=== PATIENT | male | born 1945 | race Caucasian/White ===

== ENCOUNTER 2021-04-05 18:55 | Emergency (ER) | payer OTHER, BC ==
[~2021-04-05] VITALS: Ht 162.6 cm; Wt 81.7 kg
[2021-04-05 20:25] LABS: BASOPHILS ABSOLUTE AUTO 0.03 K/mm3 (0.00-0.23); BASOPHILS PERCENT AUTO 1 % (0-2); EOSINOPHILS ABSOLUTE AUTO 0.05 K/mm3 (0.00-0.68); EOSINOPHILS PERCENT AUTO 1 % (0-6); Hematocrit 46.6 % (37.0-53.0); Hemoglobin 15.6 g/dL (13.5-17.5); IMMATURE GRAN ABSOLUTE AUTO 0.01 K/mm3 (0.00-0.10); IMMATURE GRAN PERCENT AUTO 0 % (0-1); LYMPHOCYTES ABSOLUTE AUTO 1.31 K/mm3 (0.84-5.20); LYMPHOCYTES PERCENT AUTO 26 % (21-46); MONOCYTES ABSOLUTE AUTO 0.62 K/mm3 (0.16-1.47); MONOCYTES PERCENT AUTO 12 % (4-13); Mean Corpuscular HGB 31.5 pg (26.0-34.0); Mean Corpuscular HGB Conc 33.5 g/dL (31.5-36.5); Mean Corpuscular Volume 94 fL (80-100); Mean Platelet Volume 10.1 fL (9.1-12.4); NEUTROPHILS ABSOLUTE AUTO 3.02 K/mm3 (1.96-9.15); NEUTROPHILS PERCENT AUTO 60 % (41-73); Platelet Count 149 K/mm3 (150-400); RDW Coefficient Variation 13.8 % (11.7-14.2); RDW Standard Deviation 47.6 fL (35.1-46.3); Red Blood Cell Count 4.95 M/mm3 (4.30-5.90); White Blood Cell Count 5.04 K/mm3 (4.00-11.30)
[2021-04-05 21:12] LABS: Alanine Aminotransfer (ALT/SGP 46 U/L (12-78); Albumin, Blood 3.6 g/dL (3.4-5.0); Alk Phos 53 U/L (50-136); Anion Gap 7 mmol/L (6-16); Aspartate Aminotrans (AST/SGOT 35 U/L (12-37); Bilirubin, Total 0.6 mg/dL (0.1-1.0); Blood Urea Nitrogen 7 mg/dL (8-24); Bun/Creatinine Ratio 6.2 (12.0-20.0); CO2, Blood 27 mmol/L (21-32); Calcium, Blood 9.5 mg/dL (8.5-10.1); Chloride, Blood 103 mmol/L (98-108); Creatinine, Blood 1.13 mg/dL (0.60-1.20); Globulin, Blood 3.5 g/dL (2.2-4.0); Glomerular Filtration Rate >60 (60-); Glucose, Blood 102 mg/dL (70-99); Potassium, Blood 4.2 mmol/L (3.5-5.5); Sodium, Blood 137 mmol/L (136-145); Total Protein, Blood 7.1 g/dL (6.4-8.2)
[2021-04-05] MEDS ORDERED: SPIR25 PO (23:48)
[2021-04-05] MEDS ORDERED: PROP10 PO (23:48)
[2021-04-05] MEDS ORDERED: LACT10SY PO (23:49)
== END 2021-04-05 23:41 | disposition home or self-care (01) ==
LOC: ER 18:55
PROVIDERS: Physician Assistant
DX: H53.2 Diplopia (principal); I10 Essential (primary) hypertension; F17.220 Nicotine dependence, chewing tobacco, uncomplicated
CPT/HCPCS: 70450; 80053; 85025; 93005; 93010; 99284-25

== ENCOUNTER 2022-07-10 11:13 | Day surgery (SDC) | payer OTHER ==
[~2022-07-10] VITALS: Ht 162.6 cm; Wt 87.1 kg
[~2022-07-10 11:13] MED LIST: LACT10SY PO; PROP10 PO; SPIR25 PO
[2022-07-10] MEDS ORDERED: PEPCID40 MG (11:46)
[2022-07-10] MEDS ORDERED: FLUT.05NI (11:46)
--- NOTE | 2022-07-10 12:28 | NUR ---
07/10/22 1228 Hannah Bhatt 2% LIDOCAINE NEBULIZER GIVEN PRE OP AND 0.2MG ROBINOL IV GIVEN PRE OP ORDERED BY MD MITCHELL.
[2022-07-10 13:36] VITALS: BP 118/79
== END 2022-07-10 13:39 | disposition home or self-care (01) ==
LOC: ORSCSDS 11:13
PROVIDERS: Student in an Organized Health Care Education/Training Program
PROC: 0DBH8ZX Excision of Cecum, Via Natural or Artificial Opening Endoscopic, Diagnostic (ICD-10-PCS; principal; 2022-07-10 12:45)
PROC: 0DB78ZX Excision of Stomach, Pylorus, Via Natural or Artificial Opening Endoscopic, Diagnostic (ICD-10-PCS; principal; 2022-07-10 12:45)
PROC: 0DBN8ZX Excision of Sigmoid Colon, Via Natural or Artificial Opening Endoscopic, Diagnostic (ICD-10-PCS; principal; 2022-07-10 12:45)
DX: K70.31 Alcoholic cirrhosis of liver with ascites (principal); I85.00 Esophageal varices without bleeding; K76.6 Portal hypertension; K31.89 Other diseases of stomach and duodenum; K29.70 Gastritis, unspecified, without bleeding; Z86.010 Personal history of colon polyps; K57.30 Diverticulosis of large intestine without perforation or abscess without bleeding; K64.8 Other hemorrhoids; Z13.810 Encounter for screening for upper gastrointestinal disorder; K21.9 Gastro-esophageal reflux disease without esophagitis; D12.0 Benign neoplasm of cecum; D12.2 Benign neoplasm of ascending colon; K63.5 Polyp of colon; Q27.30 Arteriovenous malformation, site unspecified; I10 Essential (primary) hypertension; E03.9 Hypothyroidism, unspecified; Z79.899 Other long term (current) drug therapy; F17.220 Nicotine dependence, chewing tobacco, uncomplicated
CPT/HCPCS: 88305; 88342; J2704; J7120

== ENCOUNTER 2023-10-02 09:42 | Day surgery (SDC) | payer OTHER ==
[~2023-10-02] VITALS: Ht 162.6 cm; Wt 90.4 kg
[~2023-10-02 09:42] MED LIST changes: +FLUT.05NI; +Lactated Ringer's 1,000 ML IV ONE; +PEPCID40 MG
[2023-10-02] MEDS ORDERED: Lactated Ringer's 1,000 ML IV ONE (10:34)
[2023-10-02] MEDS ORDERED: propofoL 50 ML IV ONE (11:04)
[2023-10-02 12:19] VITALS: BP 106/68
== END 2023-10-02 11:45 | disposition home or self-care (01) ==
LOC: ORSCSDS 09:42
PROVIDERS: Internal Medicine Gastroenterology
PROC: 0DJ08ZZ Inspection of Upper Intestinal Tract, Via Natural or Artificial Opening Endoscopic (ICD-10-PCS; principal; 2023-10-02 11:00)
DX: K74.60 Unspecified cirrhosis of liver (principal); I10 Essential (primary) hypertension; K21.9 Gastro-esophageal reflux disease without esophagitis; G47.33 Obstructive sleep apnea (adult) (pediatric); Z68.34 Body mass index [BMI] 34.0-34.9, adult
CPT/HCPCS: J2704; J7120

== ENCOUNTER 2024-05-09 11:31 | Day surgery (SDC) | payer OTHER ==
[~2024-05-09] VITALS: Ht 162.6 cm; Wt 77.1 kg
[~2024-05-09 11:31] MED LIST changes: +Atropine Sulfate 0.1 MG/ML 10ML SYR ONE; +Glycopyrrolate 0.2 MG/ML 1MLVIAL ONE; +Lidocaine 2% 5 ML SDV ONE; +Methylene Blue 1% 100 MG/10 ML VIAL ONE; +Ondansetron HCl 2 MG / ML 2ML Vial ONE; +ePHEDrine Sulfate 50 MG/ML 1ML Injection ONE
[2024-05-09] MEDS ORDERED: FAMO20 (12:00)
[2024-05-09] MEDS ORDERED: COPPER2 MG (12:01)
[2024-05-09] MEDS ORDERED: LORA10ER (12:01)
[2024-05-09] MEDS ORDERED: FURO20 (12:01)
[2024-05-09] MEDS ORDERED: SELENIUM200 MC3 (12:01)
[2024-05-09] MEDS ORDERED: ZINC15 (12:01)
[2024-05-09] MEDS ORDERED: TART CHERRY (12:01)
[2024-05-09] MEDS ORDERED: MAGCIT300 (12:02)
[2024-05-09] MEDS ORDERED: CALCIUM CITRAT1 EA19 (12:04)
[2024-05-09] MEDS ORDERED: Lactated Ringer's 1,000 ML IV ONE (12:57)
[2024-05-09] MEDS ORDERED: Benzocaine Oral Spray 0.5ML UD ONE (13:19)
[2024-05-09] MEDS ORDERED: propofoL 50 ML IV ONE (13:27)
[2024-05-09 14:02] VITALS: BP 99/71
--- NOTE | 2024-05-09 14:38 | NUR ---
05/09/[address] SPOKE WITH PT AND HIS ABOUT THE EGD. PT HAS A GROWTH IN HIS THROAT AND IS REFERRING PT TO ENT RADHA. PT BELONGS TO [facility]. PT INSTRUCTED TO STAY ON LIQUID DIET AND FOCUS WHENEVER HE IS DRINKING OR EATING VERY CARFULLY AND SLOWLY MAKING SURE NOT TO ASPIRATE. DR ALAN TOLD PT TO GO TO PHARMACIST TO FIND OUT IF HE CAN CRUSH HIS MEDICTIONS AND PUT IN HIS PROTEIN SHAKE DUE TO DIFFICULTY SWALLOWING.
== END 2024-05-09 14:30 | disposition home or self-care (01) ==
LOC: ORSCSDS 11:31
PROVIDERS: Internal Medicine Gastroenterology
PROC: 0DJ08ZZ Inspection of Upper Intestinal Tract, Via Natural or Artificial Opening Endoscopic (ICD-10-PCS; principal; 2024-05-09 13:00)
DX: R13.10 Dysphagia, unspecified (principal); D37.8 Neoplasm of uncertain behavior of other specified digestive organs; I10 Essential (primary) hypertension; G47.33 Obstructive sleep apnea (adult) (pediatric); K70.30 Alcoholic cirrhosis of liver without ascites; Z79.899 Other long term (current) drug therapy; Z87.891 Personal history of nicotine dependence
CPT/HCPCS: A9270; J0461; J2405; J2704; J7120; Q9968

== ENCOUNTER 2024-11-20 15:41 | Emergency (ER) | payer OTHER ==
[~2024-11-20] VITALS: Ht 162.6 cm; Wt 72.6 kg
[~2024-11-20 15:41] MED LIST changes: -Atropine Sulfate 0.1 MG/ML 10ML SYR ONE; +CALCIUM CITRAT1 EA19; +COPPER2 MG; +FAMO20; +FURO20; -Glycopyrrolate 0.2 MG/ML 1MLVIAL ONE; +LORA10ER; -Lactated Ringer's 1,000 ML IV ONE; -Lidocaine 2% 5 ML SDV ONE; +MAGCIT300; -Methylene Blue 1% 100 MG/10 ML VIAL ONE; -Ondansetron HCl 2 MG / ML 2ML Vial ONE; +SELENIUM200 MC3; +TART CHERRY; +ZINC15; -ePHEDrine Sulfate 50 MG/ML 1ML Injection ONE
[2024-11-20] MEDS ORDERED: NS 1,000 ML IV SCH (16:05)
[2024-11-20 16:29] LABS: BASOPHILS ABSOLUTE AUTO 0.02 K/mm3 (0.00-0.23); BASOPHILS PERCENT AUTO 0 % (0-2); EOSINOPHILS ABSOLUTE AUTO 0.12 K/mm3 (0.00-0.68); EOSINOPHILS PERCENT AUTO 2 % (0-6); Hematocrit 42.2 % (37.0-53.0); Hemoglobin 14.4 g/dL (13.5-17.5); IMMATURE GRAN ABSOLUTE AUTO 0.02 K/mm3 (0.00-0.10); IMMATURE GRAN PERCENT AUTO 0 % (0-1); LYMPHOCYTES ABSOLUTE AUTO 1.07 K/mm3 (0.84-5.20); LYMPHOCYTES PERCENT AUTO 20 % (21-46); MONOCYTES ABSOLUTE AUTO 0.60 K/mm3 (0.16-1.47); MONOCYTES PERCENT AUTO 11 % (4-13); Mean Corpuscular HGB Conc 34.1 g/dL (31.5-36.5); Mean Corpuscular Volume 93 fL (80-100); NEUTROPHILS ABSOLUTE AUTO 3.54 K/mm3 (1.96-9.15); NEUTROPHILS PERCENT AUTO 66 % (41-73); NRBC ABSOLUTE 0.00 K/mm3 (0.00-0.02); NRBC Auto 0.0 /100 WBC (0.0-0.2); Platelet Count 136 K/mm3 (150-400); RDW Coefficient Variation 13.8 % (11.7-14.2); RDW Standard Deviation 47.5 fL (35.1-46.3)
[2024-11-20 16:51] LABS: Alanine Aminotransfer (ALT/SGP 59.0 U/L (12-78); Albumin, Blood 3.3 g/dL (3.4-5.0); Albumin/Globulin Ratio 0.9 (0.8-1.8); Anion Gap 9.0 mmol/L (3-11); Aspartate Aminotrans (AST/SGOT 55.0 U/L (12-37); Bilirubin, Total 1.1 mg/dL (0.1-1.0); Blood Urea Nitrogen 23.0 mg/dL (8-24); CO2, Blood 25.0 mmol/L (21-32); Calcium, Blood 9.4 mg/dL (8.5-10.1); Chloride, Blood 105.0 mmol/L (98-108); Creatinine, Blood 0.87 mg/dL (0.60-1.20); Globulin, Blood 3.8 g/dL (2.2-4.0); Glucose, Blood 108.0 mg/dL (70-99); Magnesium, Blood 2.0 mg/dL (1.6-2.4); Potassium, Blood 3.6 mmol/L (3.5-5.5); Sodium, Blood 135.0 mmol/L (136-145); Total Protein, Blood 7.1 g/dL (6.4-8.2)
[2024-11-20 17:26] LABS: Source, Urine Clean Catch
[2024-11-20 17:30] LABS: Bilirubin, Urine Neg (Neg); Color, Urine Yellow (P-Yellow); Glucose Qualitative, Urine Neg (Neg); Ketones, Urine Neg (Neg); Leukocyte Esterase, Urine Neg (Neg); Protein, Urine Neg (Neg); Specific Gravity, Urine 1.010 (1.003-1.022); Urobilinogen, Urine NORM (Normal)
[2024-11-20] MEDS ORDERED: Dexamethasone Sod Phos 10 MG/ML 1ML VIAL IV ONE (19:00)
[2024-11-20] MEDS ORDERED: DECADRON4 M1 PO (19:02)
[2024-11-20 19:15] VITALS: BP 137/78
== END 2024-11-20 19:28 | disposition home or self-care (01) ==
LOC: ER 15:41
PROVIDERS: Emergency Medicine
DX: C71.9 Malignant neoplasm of brain, unspecified (principal); G93.6 Cerebral edema; Z87.891 Personal history of nicotine dependence; Z79.51 Long term (current) use of inhaled steroids; Z79.899 Other long term (current) drug therapy
CPT/HCPCS: 70450; 71046; 80053; 81003; 82140; 83735; 85025; 96361; 96374; 99285-25; J1100; J7030

== ENCOUNTER 2024-12-09 09:55 | Emergency (ER) | payer OTHER ==
[~2024-12-09] VITALS: Ht 162.6 cm; Wt 73.5 kg
[~2024-12-09 09:55] MED LIST changes: +DECADRON4 M1 PO
[2024-12-09 10:53] LABS: BASOPHILS ABSOLUTE AUTO 0.01 K/mm3 (0.00-0.23); BASOPHILS PERCENT AUTO 0 % (0-2); EOSINOPHILS ABSOLUTE AUTO 0.00 K/mm3 (0.00-0.68); EOSINOPHILS PERCENT AUTO 0 % (0-6); Hematocrit 44.1 % (37.0-53.0); Hemoglobin 15.7 g/dL (13.5-17.5); IMMATURE GRAN ABSOLUTE AUTO 0.05 K/mm3 (0.00-0.10); IMMATURE GRAN PERCENT AUTO 1 % (0-1); LYMPHOCYTES ABSOLUTE AUTO 0.21 K/mm3 (0.84-5.20); LYMPHOCYTES PERCENT AUTO 3 % (21-46); MONOCYTES ABSOLUTE AUTO 0.39 K/mm3 (0.16-1.47); MONOCYTES PERCENT AUTO 5 % (4-13); Mean Corpuscular HGB Conc 35.6 g/dL (31.5-36.5); Mean Corpuscular Volume 89 fL (80-100); NEUTROPHILS ABSOLUTE AUTO 7.61 K/mm3 (1.96-9.15); NEUTROPHILS PERCENT AUTO 92 % (41-73); NRBC ABSOLUTE 0.00 K/mm3 (0.00-0.02); NRBC Auto 0.0 /100 WBC (0.0-0.2); Platelet Count 67 K/mm3 (150-400); RDW Coefficient Variation 14.7 % (11.7-14.2); RDW Standard Deviation 47.6 fL (35.1-46.3)
[2024-12-09 11:22] LABS: Alanine Aminotransfer (ALT/SGP 122.0 U/L (12-78); Albumin, Blood 3.1 g/dL (3.4-5.0); Albumin/Globulin Ratio 1.1 (0.8-1.8); Anion Gap 9.0 mmol/L (3-11); Aspartate Aminotrans (AST/SGOT 46.0 U/L (12-37); Bilirubin, Total 2.3 mg/dL (0.1-1.0); Blood Urea Nitrogen 28.0 mg/dL (8-24); CO2, Blood 26.0 mmol/L (21-32); Calcium, Blood 8.5 mg/dL (8.5-10.1); Chloride, Blood 95.0 mmol/L (98-108); Creatinine, Blood 0.88 mg/dL (0.60-1.20); Globulin, Blood 2.9 g/dL (2.2-4.0); Glucose, Blood 127.0 mg/dL (70-99); Potassium, Blood 4.2 mmol/L (3.5-5.5); Sodium, Blood 126.0 mmol/L (136-145); Total Protein, Blood 6.0 g/dL (6.4-8.2)
[2024-12-09 14:05] VITALS: BP 119/81
== END 2024-12-09 14:12 | disposition home or self-care (01) ==
LOC: ER 09:55
PROVIDERS: Student in an Organized Health Care Education/Training Program
DX: K74.60 Unspecified cirrhosis of liver (principal); E87.1 Hypo-osmolality and hyponatremia; K52.9 Noninfective gastroenteritis and colitis, unspecified; K80.20 Calculus of gallbladder without cholecystitis without obstruction; R18.8 Other ascites; Z93.1 Gastrostomy status; Z87.891 Personal history of nicotine dependence; Z79.899 Other long term (current) drug therapy
CPT/HCPCS: 74177; 80053; 83930; 85025; 99283-25; Q9967